=== PATIENT | male | born 1935 | race Caucasian/White ===

== ENCOUNTER → 2018-07-15 | Outpatient (CLI) | payer MEDICARE, BC ==
[~2018-07-15] MED LIST: BETA CAROTENE PO; CEPHALEXIN500 M1 PO; FOLIC ACID 40400 MCG PO; IRON325 M1 PO; LUTEIN PO; NO HOME MEDICATIONS; NORCO 325 MG-7.1 TAB PO; PHENERGAN 25 TA25 MG PO; TYLENOL 650MG650 M2 PO; VITAMIN C500 MG PO; VITAMIN E100 I3 PO
== END ==
LOC: COL.RAD 10:47
DX: R07.9 Chest pain, unspecified (principal)
CPT/HCPCS: Q9967

== ENCOUNTER → 2023-04-02 | Outpatient (CLI) | payer MEDICARE | LOC: COL.CARD 07:55 | DX: R06.02 Shortness of breath (principal) ==

== ENCOUNTER 2023-10-09 10:26 | Emergency (ER) | payer MEDICARE, BC ==
[~2023-10-09] VITALS: Ht 167.6 cm; Wt 86.4 kg
[2023-10-09 10:32] VITALS: BP 137/89; TEMP 97.6
[2023-10-09] MEDS ORDERED: SYNTHROID0.075 MG/T PO (10:40)
--- NOTE | 2023-10-09 12:09 | NUR ---
REBECA consulted by [facility] [place] to meet with patient to provide resources. REBECA met with patient and daughter in law in room. Patient verified that he lives in [place] with his Myriam ([phone]). Patient sees PCP at [facility] and states he's just started with a new provider since his old one retired. He does not remember the name of the new PCP. Patient uses [facility] pharmacy without difficulty. He reports having a cane that he uses once in a while and grab bars in the bathroom. Patient reports that his son Erich is his DPOA and his PCP office has a copy on file. Patient reports that his has dementia and he is caregiver for her. Patient reports "She doesn't want to do anything and always wants to be with me." He states his children live local and come by at times but he really doesn't have much help. Patient states he cooks breakfast and dinner for them and gives his her medications. He states he has no safety concerns for his at this time but would like to get someone to help with house cleaning. REBECA provided [facility] information and list of private duty services. Patient denies any other needs at this time. Discharge plan: Home
[2023-10-09 13:34] VITALS: PULSE 65
== END 2023-10-09 13:35 | disposition home or self-care (01) ==
LOC: COL.ER 10:26
DX: S01.411A Laceration without foreign body of right cheek and temporomandibular area, initial encounter (principal); S01.111A Laceration without foreign body of right eyelid and periocular area, initial encounter; M54.2 Cervicalgia; Z23 Encounter for immunization; W18.30XA Fall on same level, unspecified, initial encounter